=== PATIENT | female | born 2000 | race Caucasian/White ===

== ENCOUNTER 2021-05-05 18:23 | Emergency (ER) | payer OTHER ==
[~2021-05-05] VITALS: Ht 175.3 cm; Wt 72.7 kg
[2021-05-05 19:00] VITALS: TEMP 99.1
[2021-05-05] MEDS ORDERED: CRUTCHES MC (19:49)
[2021-05-05 20:26] VITALS: BP 107/70; PULSE 54
== END 2021-05-05 20:28 | disposition home or self-care (01) ==
LOC: COL.ER 18:23
DX: S93.402A Sprain of unspecified ligament of left ankle, initial encounter (principal); X50.1XXA Overexertion from prolonged static or awkward postures, initial encounter; Y93.67 Activity, basketball